=== PATIENT | male | born 1990 | race Caucasian/White ===

== ENCOUNTER 2022-09-19 22:20 | Emergency (ER) | payer OTHER ==
[~2022-09-19] VITALS: Ht 182.9 cm; Wt 64.2 kg
[2022-09-20] MEDS ORDERED: CIPROFLOXACIN 0.3% OPHTH SOLN 2.5ML OD ONE (01:15)
[2022-09-20] MEDS ORDERED: CIPR0.3S6 OD (01:16)
[2022-09-20 01:29] VITALS: BP 112/71
== END 2022-09-20 01:30 | disposition home or self-care (01) ==
LOC: M ED 22:20
DX: H10.9 Unspecified conjunctivitis (principal); F17.200 Nicotine dependence, unspecified, uncomplicated; F12.10 Cannabis abuse, uncomplicated

== ENCOUNTER → 2023-02-13 | Outpatient (REF) | payer OTHER ==
[~2023-02-13] MED LIST: CIPR0.3S37 OD
[2023-02-13 18:07] LABS: HIV 1&2 SCREEN NEGATIVE (NEGATIVE)
[2023-02-13 18:14] LABS: HEPATITIS C VIRUS ABY INDEX 0.13 INDEX (<0.8)
== END ==
LOC: M LAB REF 16:34
PROVIDERS: ATTEND Family Medicine Addiction Medicine
DX: Z11.3 Encounter for screening for infections with a predominantly sexual mode of transmission (principal)

== ENCOUNTER → 2023-05-14 | Outpatient (CLI) | payer OTHER | LOC: M WUC 11:28 | PROVIDERS: ATTEND Family Medicine Addiction Medicine | DX: Z21 Asymptomatic human immunodeficiency virus [HIV] infection status (principal); Z53.9 Procedure and treatment not carried out, unspecified reason ==

== ENCOUNTER → 2023-05-15 | Outpatient (CLI) | payer OTHER | LOC: M WUC 15:41 | PROVIDERS: ATTEND Family Medicine Addiction Medicine | DX: Z21 Asymptomatic human immunodeficiency virus [HIV] infection status (principal) ==

== ENCOUNTER → 2023-05-20 | Outpatient (CLI) | payer OTHER ==
[2023-05-20 14:32] LABS: HEPATITIS B SURFACE ANTIBODY NEGATIVE (POSITIVE)
[2023-05-20 15:06] LABS: HEPATITIS C VIRUS ABY INDEX 0.15 INDEX (<0.8)
[2023-05-20 15:44] LABS: GC DNA AMPLIFICATION NEGATIVE (NEGATIVE)
[2023-05-23 05:07] LABS: % CD8 Pos Lymph 79.8 % (12.0-35.5); %CD4 Pos Lymphs 8.9 % (30.8-58.5); ABS Basophils 0.1 x10E3/uL (0.0-0.2); ABS Lymphs 4.1 x10E3/uL (0.7-3.1); ABS Monocytes 0.6 x10E3/uL (0.1-0.9); ABS Neutophils 2.3 x10E3/uL (1.4-7.0); Abs CD4 Helper 365 /uL (359-1519); Abs CD8 Suppres 3272 /uL (109-897); CD4/CD8 Ratio 0.11 (0.92-3.72); Eosinophils 0 % (Not Estab.); HCT 35.9 % (37.5-51.0); HEPATITIS A IgG TOTAL Positive (Negative); HEPATITIS B CORE ANTIBODY IGG Negative (Negative); HGB 11.6 g/dL (13.0-17.7); HSV TYPE I IgG SPECIFIC 5.81 index (0.00-0.90); HSV TYPE II IgG SPECIFIC <0.91 index (0.00-0.90); Imm ABS Grans 0.1 x10E3/uL (0.0-0.1); Immature Grans 1 % (Not Estab.); Lymphocytes 57 % (Not Estab.); MCH 26.3 pg (26.6-33.0); MCHC 32.3 g/dL (31.5-35.7); MCV 81 fL (79-97); Monocytes 9 % (Not Estab.); Neutrophils 32 % (Not Estab.); Platelets 247 x10E3/uL (150-450); RBC 4.41 x10E6/uL (4.14-5.80); RDW 12.9 % (11.6-15.4); WBC 7.3 x10E3/uL (3.4-10.8)
== END ==
LOC: M PLALAB 10:48
PROVIDERS: ATTEND Internal Medicine Infectious Disease
DX: B20 Human immunodeficiency virus [HIV] disease (principal); Z11.3 Encounter for screening for infections with a predominantly sexual mode of transmission

== ENCOUNTER → 2023-06-24 | Outpatient (CLI) | payer MEDICAID, OTHER ==
[2023-06-24 22:23] LABS: C REACTIVE PROTEIN QUANTITATIV < 0.40 MG/DL (<1.0)
[2023-06-24 22:24] LABS: ALBUMIN 3.7 G/DL (3.2-5.2); ALKALINE PHOSPHATASE 105 U/L (46-116); ALT/SGPT 48 U/L (7.0-40); AST/SGOT 46 U/L (<34); BILIRUBIN,TOTAL 0.6 MG/DL (0.3-1.2); BLOOD UREA NITROGEN 11 MG/DL (9-23); CARBON DIOXIDE LEVEL 30 MMOL/L (20-31); CHLORIDE LEVEL 102 MMOL/L (98-107); CREATININE FOR GFR 0.73 MG/DL (0.70-1.30); GLOMERULAR FILTRATION RATE > 60.0 (>60); GLUCOSE, FASTING 75 MG/DL (60-100); POTASSIUM SERUM 4.1 MMOL/L (3.5-5.1); SODIUM LEVEL 137 MMOL/L (136-145)
[2023-06-24 22:26] LABS: TOTAL 25(OH) VITAMIN D 35.1 NG/ML (20.0-100.0); VITAMIN B12 LEVEL 1140 PG/ML (211-911)
[2023-06-24 22:32] LABS: HEPATITIS B SURFACE ANTIBODY NEGATIVE (POSITIVE)
[2023-06-24 22:50] LABS: FOLATE 8.8 NG/ML (>5.4)
== END ==
LOC: M PLALAB 13:17
PROVIDERS: ATTEND Internal Medicine Infectious Disease
DX: B20 Human immunodeficiency virus [HIV] disease (principal); A51.5 Early syphilis, latent; Z23 Encounter for immunization; M79.604 Pain in right leg

== ENCOUNTER → 2024-07-27 | Outpatient (CLI) | payer MEDICAID, OTHER, SELFPAY ==
[2024-07-27 17:05] LABS: BLOOD UREA NITROGEN 20 MG/DL (9-23); CALCIUM LEVEL 9.8 MG/DL (8.5-10.1); CARBON DIOXIDE LEVEL 30 MMOL/L (20-31); CHLORIDE LEVEL 103 MMOL/L (98-107); CREATININE FOR GFR 0.97 MG/DL (0.70-1.30); GLOMERULAR FILTRATION RATE > 60.0 (>60); GLUCOSE, FASTING 101 MG/DL (60-100); POTASSIUM SERUM 4.2 MMOL/L (3.5-5.1); SODIUM LEVEL 137 MMOL/L (136-145)
[2024-07-29 13:58] LABS: RPR NON-REACTIVE (NON-REACTIVE)
== END ==
LOC: M PLALAB 13:00
PROVIDERS: ATTEND Internal Medicine Infectious Disease
DX: E87.5 Hyperkalemia (principal); Z86.19 Personal history of other infectious and parasitic diseases

== ENCOUNTER → 2024-11-11 | Outpatient (CLI) | payer OTHER ==
[2024-11-11 15:36] LABS: ALBUMIN 3.9 G/DL (3.2-5.2); ALKALINE PHOSPHATASE 72 U/L (40-129); ALT/SGPT 25 U/L (7.0-40); AST/SGOT 27 U/L (<34); BILIRUBIN,TOTAL 0.5 MG/DL (0.3-1.2); BLOOD UREA NITROGEN 14 MG/DL (9-23); CALCIUM LEVEL 9.6 MG/DL (8.5-10.1); CARBON DIOXIDE LEVEL 33 MMOL/L (20-31); CHLORIDE LEVEL 100 MMOL/L (98-107); CHOLESTEROL LEVEL 124 MG/DL (<200); CHOLESTEROL RISK RATIO 2.37 (<5); CREATININE FOR GFR 0.73 MG/DL (0.70-1.30); GLOMERULAR FILTRATION RATE > 90.0 (>60); GLUCOSE, FASTING 92 MG/DL (60-100); HDL CHOLESTEROL 52.2 MG/DL (>40); LDL CHOLESTEROL 62.6 MG/DL (<100); NON-HDL-C 71.8 MG/DL; POTASSIUM SERUM 4.2 MMOL/L (3.5-5.1); SODIUM LEVEL 141 MMOL/L (136-145); TOTAL PROTEIN 7.3 G/DL (5.7-8.2); TRIGLYCERIDES LEVEL 46 MG/DL (<150)
[2024-11-11 16:15] LABS: HEPATITIS C VIRUS ABY INDEX 0.11 INDEX (<0.8)
[2024-11-11 18:55] LABS: GC DNA AMPLIFICATION NEGATIVE (NEGATIVE)
[2024-11-11 18:56] LABS: GC DNA AMPLIFICATION NEGATIVE (NEGATIVE)
[2024-11-14 15:35] LABS: RPR NON-REACTIVE (NON-REACTIVE)
[2024-11-14 17:28] LABS: % CD4 11 % (30-61); %CD8 68 % (12-42); ABSOLUTE CD4 CELLS 250 cells/uL (490-1740); ABSOLUTE CD8 CELLS 1529 cells/uL (180-1170); ABSOLUTE LYMPHOCYTES 2247 cells/uL (850-3900); CD4 CD8 RATIO 0.16 (0.86-5.00)
== END ==
LOC: M PLALAB 12:59
PROVIDERS: ATTEND Internal Medicine Infectious Disease
DX: B20 Human immunodeficiency virus [HIV] disease (principal); Z23 Encounter for immunization; Z13.220 Encounter for screening for lipoid disorders; A51.5 Early syphilis, latent

== ENCOUNTER → 2025-05-05 | Outpatient (CLI) | payer OTHER ==
[2025-05-05 15:17] LABS: ALT/SGPT 36 U/L (7.0-40); AST/SGOT 38 U/L (<34); CALCIUM LEVEL 9.7 MG/DL (8.5-10.1); CARBON DIOXIDE LEVEL 32 MMOL/L (20-31); CHLORIDE LEVEL 102 MMOL/L (98-107); CREATININE FOR GFR 0.87 MG/DL (0.70-1.30); GLOMERULAR FILTRATION RATE > 90.0 (>60); POTASSIUM SERUM 4.1 MMOL/L (3.5-5.1); SODIUM LEVEL 143 MMOL/L (136-145)
[2025-05-07 20:47] LABS: % CD4 13 % (30-61); %CD8 61 % (12-42); ABSOLUTE CD4 CELLS 281 cells/uL (490-1740); ABSOLUTE CD8 CELLS 1346 cells/uL (180-1170); ABSOLUTE LYMPHOCYTES 2204 cells/uL (850-3900); CD4 CD8 RATIO 0.21 (0.86-5.00)
[2025-05-08 16:25] LABS: RPR REACTIVE (NON-REACTIVE)
[2025-05-09 10:03] LABS: TREPONEMA PALLIDUM ANTIBODIES POSITIVE (NEGATIVE)
[2025-05-09 15:02] LABS: RPR TITER 1:2 (<1:1)
== END ==
LOC: M PLALAB 12:58
PROVIDERS: ATTEND Internal Medicine Infectious Disease
DX: B20 Human immunodeficiency virus [HIV] disease (principal); A51.5 Early syphilis, latent